=== PATIENT | male | born 1960 | race Caucasian/White ===

== ENCOUNTER 2019-09-09 13:57 | Outpatient (CLI) | payer MEDICARE ==
[~2019-09-09 13:57] MED LIST: ALPR0.5T6 PO; APIX5TAB PO; ASPI-650 PO; ATOR20TA37 PO; CLON0.5T PO; DIGO125T85 PO; DILT240C80 PO; DILT360T PO; ENAL2.5T8 PO; ESCI20TA PO; FOLI-17 PO; FURO40TA6 PO; INDO50CA15 PO; LEVO500T47 PO; LEVO75TA5 PO; LORA-445 PO; MAGN400T26 PO; METO-99 PO; MULT-750 PO; OMEP-110 PO; OXYC1TAB7 PO; POTA20PA25 PO; POTA25TA4 PO; SERT50TA28 PO; THIA100T67 PO; TRAM50TA2 PO
[2019-09-09] MEDS ORDERED: ATOR20TA37 PO (14:42)
[2019-09-09] MEDS ORDERED: APIX5TAB PO (14:42)
[2019-09-09] MEDS ORDERED: ESCI20TA PO (14:42)
[2019-09-09] MEDS ORDERED: CLON-364 PO (14:42)
[2019-09-09] MEDS ORDERED: ENAL2.5T8 PO (14:42)
[2019-09-09] MEDS ORDERED: DIGO125T85 PO (14:42)
[2019-09-09] MEDS ORDERED: ALLO300T PO (14:42)
[2019-09-09] MEDS ORDERED: SERT50TA28 PO (14:42)
[2019-09-09] MEDS ORDERED: MULTIVITAMIN (14:46)
[2019-09-09] MEDS ORDERED: [UNRECOGNIZED DRUG - OTHER] PO (14:46)
[2019-09-09] MEDS ORDERED: IBUP-1223 PO (15:06)
[2019-09-09 15:35] LABS: ALBUMIN 4.3 g/dL (3.4-5.0); ANION GAP 6 mmol/L (5-15); CHLORIDE 107 mmol/L (98-107)
[2019-09-09 15:40] LABS: ALANINE AMINOTRANSFERASE 23 U/L (12-78); ALKALINE PHOSPHATASE 76 U/L (45-117); BILIRUBIN,TOTAL 0.4 mg/dL (0.2-1.0); CREATININE 1.07 mg/dL (0.7-1.3)
== END 2019-09-09 23:59 | disposition home or self-care (01) ==
LOC: STAR 13:57
PROVIDERS: ATTEND Orthopaedic Surgery
DX: Z01.818 Encounter for other preprocedural examination (principal); M21.6X1 Other acquired deformities of right foot; M25.371 Other instability, right ankle; M25.571 Pain in right ankle and joints of right foot; I48.91 Unspecified atrial fibrillation; I49.3 Ventricular premature depolarization
CPT/HCPCS: 36415; 80053; 93005

== ENCOUNTER 2019-09-13 08:00 | Day surgery (SDC) | payer MEDICARE ==
[~2019-09-13] VITALS: Ht 182.9 cm; Wt 108.9 kg
[~2019-09-13 08:00] MED LIST changes: +ALLO300T PO; +CLON-364 PO; +ENAL2.5T PO; -ENAL2.5T8 PO; +IBUP-1223 PO; +MULTIVITAMIN; +[UNRECOGNIZED DRUG - OTHER] PO
[2019-09-13] MEDS ORDERED: CHLORHEXIDINE 15 ML UDC MM ONE (09:00)
[2019-09-13] MEDS ORDERED: LACTATED RINGERS 1,000 ML IV SCH (09:01)
[2019-09-13 09:02] VITALS: BP 113/80
[2019-09-13] MEDS ORDERED: FENTANYL PF 250 MCG/5ML ONE (09:26)
[2019-09-13] MEDS ORDERED: MIDAZOLAM 1 MG/ML, 2ML ONE ×2 (09:26→10:08)
[2019-09-13] MEDS ORDERED: PROMETHAZINE 25 MG/ML, 1ML IVPush PRN (09:30)
[2019-09-13] MEDS ORDERED: DIPHENHYDRAMINE 50 MG/ML, 1ML IVPush PRN (09:30)
[2019-09-13] MEDS ORDERED: LABETALOL 5MG/ML, 20ML IV PRN (09:30)
[2019-09-13] MEDS ORDERED: FENTANYL PF 100 MCG/2ML IV PRN (09:30)
[2019-09-13] MEDS ORDERED: hydrALAzine 20 MG/ML, 1ML IV PRN (09:30)
[2019-09-13] MEDS ORDERED: MEPERIDINE/PF 25MG/0.5ML IVPush PRN (09:30)
[2019-09-13] MEDS ORDERED: HYDROmorphone 1 MG/ML, 1ML INJ IVPush PRN (09:30)
[2019-09-13] MEDS ORDERED: GABAPENTIN 300 MG CAPSULE PO ONE (09:30)
[2019-09-13] MEDS ORDERED: HALOPERIDOL 5 MG/ML IV PRN (09:30)
[2019-09-13] MEDS ORDERED: OXYcodone 5 MG/5 ML ORAL.SOL UDC PO PRN (09:30)
[2019-09-13] MEDS ORDERED: ACETAMINOPHEN 500 MG TABLET PO ONE (09:30)
[2019-09-13] MEDS ORDERED: METOPROLOL 1 MG/ML, 5ML ONE ×2 (11:30→14:14)
[2019-09-13] MEDS ORDERED: ESMOLOL 100 MG/10 ML ONE (11:30)
[2019-09-13] MEDS ORDERED: FENTANYL PF 100 MCG/2ML ONE (13:05)
[2019-09-13] MEDS ORDERED: PROPOFOL 10 MG/ML, 20ML ONE (13:44)
[2019-09-13] MEDS ORDERED: CEFAZOLIN 1,000 MG ONE (13:44)
[2019-09-13] MEDS ORDERED: ONDANSETRON 2MG/ML, 2ML ONE (13:44)
[2019-09-13] MEDS ORDERED: DEXAMETHASONE 4 MG/ML, 1ML ONE (13:44)
[2019-09-13] MEDS ORDERED: METOPROLOL 1 MG/ML, 5ML IV PRN (14:30)
[2019-09-13] MEDS ORDERED: BUPIVACAINE LIPOSOME/PF 10ML INFIL ONE (18:49)
== END 2019-09-13 15:55 | disposition home or self-care (01) ==
LOC: OUT 08:00
PROVIDERS: ATTEND Orthopaedic Surgery
DX: M21.171 Varus deformity, not elsewhere classified, right ankle (principal); Z11.59 Encounter for screening for other viral diseases; M13.871 Other specified arthritis, right ankle and foot; M25.371 Other instability, right ankle; F12.90 Cannabis use, unspecified, uncomplicated; Z79.01 Long term (current) use of anticoagulants; Z79.899 Other long term (current) drug therapy; Z72.89 Other problems related to lifestyle; Z82.49 Family history of ischemic heart disease and other diseases of the circulatory system; Z83.3 Family history of diabetes mellitus
CPT/HCPCS: 27625; 27680; 27687; 27698; 28306; 28725; 36415; 73620; 87635; C1713; J0690; J1100; J2250; J2405; J2704; J3010; J7120; 76000